=== PATIENT | female | born 1930 | race Caucasian/White ===

== ENCOUNTER 2016-04-28 13:43 | Observation (INO) | payer MEDICARE, OTHER ==
[2016-04-28] MEDS ORDERED: ASPIRIN 81 MG TABLET, CHEWABLE PO ONE (14:01)
--- NOTE | 2016-04-28 14:07 | ER Document Report ---
ED Medical Screen (RME) - General Stated Complaint: CHEST PAIN Mode of Arrival: Wheelchair Information source: Patient Notes: 86-year-old female presents to the emergency department complaining of episode of left-sided chest pain. Reports left-sided chest pain while sitting in the car after eating that lasted approximately 10 minutes and resolved after taking dose of nitroglycerin. Denies pain at this time. I have greeted and performed a rapid initial assessment of this patient. A comprehensive ED assessment and evaluation of the patient, analysis of test results and completion of the medical decision making process will be conducted by additional ED providers. - Related Data Allergies/Adverse Reactions: No Known Allergies Allergy (Unverified 04/28/16 14:04) Physical Exam - General General appearance: Appears well, Alert In distress: None - Respiratory Respiratory status: No respiratory distress - Cardiovascular Rhythm: Regular Pulses: Normal: Radial Normal capillary refill: Yes
[2016-04-28 14:32] LABS: ABSOLUTE EOSINOPHILS # (AUTO) 0.2 10^3/uL (0.0-0.6); ABSOLUTE LYMPHOCYTES (AUTO) 1.3 10^3/uL (0.5-4.7); ABSOLUTE MONOCYTES (AUTO) 0.8 10^3/uL (0.1-1.4); ABSOLUTE NEUT (AUTO) 5.5 10^3/uL (1.7-8.2); BASOPHILS % (AUTO) 0.4 % (0-2); EOSINOPHILS % (AUTO) 3.2 % (0-6); HEMATOCRIT 32.8 % (36.0-47.0); HEMOGLOBIN 10.6 g/dL (12.0-15.5); LYMPHOCYTES % (AUTO) 16.1 % (13-45); MEAN CORPUSCULAR HEMOGLOBIN 26.7 pg (27.0-33.4); MEAN CORPUSCULAR HGB CONC 32.2 g/dL (32.0-36.0); MEAN CORPUSCULAR VOLUME 83 fl (80-97); RED BLOOD COUNT 3.95 10^6/uL (3.72-5.28); RED CELL DISTRIBUTION WIDTH 15.1 % (11.5-14.0); SEGMENTED NEUTROPHILS % (AUTO) 70.3 % (42-78); WHITE BLOOD COUNT 7.8 10^3/uL (4.0-10.5)
[2016-04-28 14:47] LABS: ALANINE AMINOTRANSFERASE 15 U/L (9-52); ALBUMIN 4.3 g/dL (3.5-5.0); ALKALINE PHOSPHATASE 108 U/L (38-126); ANION GAP 11 (5-19); ASPARTATE AMINO TRANSFERASE 13 U/L (14-36); BILIRUBIN,TOTAL 0.6 mg/dL (0.2-1.3); BLOOD UREA NITROGEN 25 mg/dL (7-20); CALCIUM 9.3 mg/dL (8.4-10.2); CARBON DIOXIDE 26 mmol/L (22-30); CHLORIDE 98 mmol/L (98-107); CREATINE KINASE 41 U/L (30-135); CREATININE RESULT 0.93 mg/dL (0.52-1.25); GLUCOSE 107 mg/dL (75-110); POTASSIUM 4.6 mmol/L (3.6-5.0); SODIUM 134.5 mmol/L (137-145); TOTAL PROTEIN 7.1 g/dL (6.3-8.2)
[2016-04-28 14:59] LABS: CREATINE KINASE MB 0.91 ng/mL (<4.55)
[2016-04-28 15:08] LABS: TROPONIN I < 0.012 ng/mL
--- NOTE | 2016-04-28 15:46 | ER Document Report ---
ED Cardiac - General Chief Complaint: Chest Pain Stated Complaint: CHEST PAIN Mode of Arrival: Wheelchair Notes: The patient is an 86-year-old female, past medical history CAD s/p 1 stent, hypertension, hyperlipidemia, presents with left-sided chest pressure that started at rest earlier today. She took 3 nitroglycerin and the pain resolved. She felt slightly lightheaded after the nitroglycerin and this is now resolved. In addition, she is also feeling nauseous. Denies shortness of breath, vomiting, fevers, leg swelling, cough, rash, headache, numbness or tingling. TRAVEL OUTSIDE OF THE [place] IN LAST 30 DAYS: No - Related Data Allergies/Adverse Reactions: No Known Allergies Allergy (Unverified 04/28/16 14:04) Past Medical History - General Information source: Patient - Social History Smoking Status: Current Every Day Smoker Chew tobacco use (# tins/day): No Frequency of alcohol use: Heavy Drug Abuse: None Family History: Reviewed & Not Pertinent Patient has suicidal ideation: No Patient has homicidal ideation: No Renal/ Medical History: Denies: Hx Peritoneal Dialysis Review of Systems - Review of Systems Notes: REVIEW OF SYSTEMS: CONSTITUTIONAL: -fevers, -chills EENT: -eye pain, -difficulty swallowing, -nasal congestion CARDIOVASCULAR: +chest pain, -syncope. RESPIRATORY: -cough, -SOB GASTROINTESTINAL: -abdominal pain, +nausea, -vomiting, -diarrhea GENITOURINARY: -dysuria, -hematuria MUSCULOSKELETAL: -back pain, -neck pain SKIN: -rash or skin lesions. HEMATOLOGIC: -easy bruising or bleeding. LYMPHATIC: -swollen, enlarged glands. NEUROLOGICAL: -altered mental status or loss of consciousness, -headache, - neurologic symptoms PSYCHIATRIC: -anxiety, -depression. ALL OTHER SYSTEMS REVIEWED AND NEGATIVE. Physical Exam - Vital signs Vitals: Pulse Resp BP Pulse Ox 57 L 16 177/80 H 98 04/28/16 14:01 04/28/16 14:01 04/28/16 14:01 04/28/16 14:01 - Notes Notes: PHYSICAL EXAMINATION: GENERAL: Well-appearing, well-nourished and in no acute distress. HEAD: Atraumatic, normocephalic. EYES: Pupils equal round and reactive to light, extraocular movements intact, sclera anicteric, conjunctiva are normal. ENT: nares patent, oropharynx clear without exudates. Moist mucous membranes. NECK: Normal range of motion, supple without lymphadenopathy LUNGS: Breath sounds clear to auscultation bilaterally and equal. No wheezes rales or rhonchi. HEART: Bradycardic (57) and regular rhythm without murmurs ABDOMEN: Soft, nontender, normoactive bowel sounds. No guarding, no rebound. No masses appreciated. EXTREMITIES: Normal range of motion, no pitting or edema. No cyanosis. NEUROLOGICAL: Cranial nerves grossly intact. Normal speech, normal gait. Normal sensory, motor, and reflex exams. PSYCH: Normal mood, normal affect. SKIN: Warm, Dry, normal turgor, no rashes or lesions noted. Course - Re-evaluation Re-evalutation: Patient chest pain-free. HEART score 7. Patient's symptoms atypical for aortic dissection or PE at this time. Patient will require admission for further evaluation and treatment. Patient and daughter are in agreement with plan. Spoke to Jennifer Geller and she has accepted patient at 15:50. - Vital Signs Vital signs: Temp Pulse Resp BP Pulse Ox 57 L 16 177/80 H 98 04/28/16 14:01 04/28/16 14:01 04/28/16 14:01 04/28/16 14:01 - Laboratory Result Diagrams: 04/28/16 14:19 04/28/16 14:19 Laboratory results interpreted by me: 04/28/16 04/28/16 14:19 14:19 Hgb 10.6 L Hct 32.8 L MCH 26.7 L RDW 15.1 H Sodium 134.5 L BUN 25 H Est GFR (Non-Af Amer) 57 L AST 13 L - Diagnostic Test Radiology reviewed: Image reviewed, Reports reviewed Radiology results interpreted by me: CXR: NAD - EKG Interpretation by Nh EKG shows normal: Sinus rhythm, [place], Intervals, QRS Complexes, ST-T Waves Rate: Bradycardia Discharge - Discharge Clinical Impression: Chest pain Qualifiers: Chest pain type: unspecified Qualified Code(s): R07.9 - Chest pain, unspecified Condition: Stable Disposition: ADMITTED OBSERVATION Admitting Provider: Hospitalist - Jennifer Geller Unit Admitted: Telemetry
[2016-04-28] MEDS ORDERED: NITROGLYCERIN 0.4 MG/TAB 25 TAB/BOTTLE SL PRN (16:33)
[2016-04-28] MEDS ORDERED: ONDANSETRON HCL INJ/PF 4 MG/2 ML SDV IV PRN (16:33)
[2016-04-28] MEDS ORDERED: MAG HYDROX/AL HYDROX/SIMETH SUSP 30 ML UDCUP PO PRN (16:33)
--- NOTE | 2016-04-28 16:54 | PDOC H&P ---
History of Present Illness Patient complains of: Midsternal chest pressure and nausea History of Present Illness: ARIC GUZMAN is a 86 year old female with past medical history of coronary artery disease, status post stent, paroxysmal atrial fibrillation, hypertension , hyperlipidemia and hiatal hernia. Presents to [facility] emergency room this afternoon after experiencing midsternal chest discomfort with associated nausea. Patient states pain was not like her typical anginal pain she's had in the past. She denies any shortness of breath, palpitations, or diaphoresis. She states the pain occurred while she was at rest riding in the car after having some lunch with her daughter. She denied any vomiting. She denies any chest pain at the present time or nausea. Patient states she underwent surgery in February after her stomach became twisted and incarcerated in her hiatal hernia. Patient recently relocated to [place] end of February live with her daughter. She has not established a primary care provider here yet. She's had no other further pain since her arrival in the emergency room. Her initial troponin and EKG are unremarkable for any ischemia. Past Medical History Cardiac Medical History: Reports: Atrial Fibrillation, Coronary Artery Disease, Hypertension Pulmonary Medical History: Reports: None EENT Medical History: Reports: Cataracts Neurological Medical History: Reports: None Endocrine Medical History: Reports: None Renal/ Medical History: Reports: None Malignancy Medical History: Reports: None GI Medical History: Reports: Gastroesophageal Reflux Disease, Hiatal Hernia Musculoskeltal Medical History: Reports: Arthritis Skin Medical History: Reports: None Psychiatric Medical History: Reports: None Traumatic Medical History: Reports: None Hematology: Reports: None Infectious Medical History: Reports: None Past Surgical History Past Surgical History: Reports: Coronary Stent, Herniorrhaphy, Other Social History Information Source: Patient Lives with: Family Smoking Status: Never Smoker Frequency of Alcohol Use: None Hx Recreational Drug Use: No - Advance Directive Resuscitation Status: Full Code Surrogate healthcare decision maker:: daughter is her MPOA Family History Family History: Reviewed & Not Pertinent Parental Family History Reviewed: Yes Children Family History Reviewed: Yes Sibling(s) Family History Reviewed.: Yes Medication/Allergy Allergies/Adverse Reactions: No Known Allergies Allergy (Unverified 04/28/16 14:04) Review of Systems Constitutional: ABSENT: chills, fever(s), headache(s), weight gain, weight loss Eyes: ABSENT: visual disturbances Ears: ABSENT: hearing changes Cardiovascular: PRESENT: chest pain. ABSENT: dyspnea on exertion, edema, orthropnea, palpitations Respiratory: ABSENT: cough, hemoptysis Gastrointestinal: PRESENT: constipation, heartburn, nausea Genitourinary: ABSENT: dysuria, hematuria Musculoskeletal: ABSENT: joint swelling Integumentary: ABSENT: rash, wounds Neurological: ABSENT: abnormal gait, abnormal speech, confusion, dizziness, focal weakness, syncope Psychiatric: ABSENT: anxiety, depression, homidical ideation, suicidal ideation Endocrine: ABSENT: cold intolerance, heat intolerance, polydipsia, polyuria Hematologic/Lymphatic: ABSENT: easy bleeding, easy bruising Physical Exam Vital Signs: Temp Pulse Resp BP Pulse Ox 57 L 16 177/80 H 100 04/28/16 14:01 04/28/16 14:01 04/28/16 14:01 04/28/16 14:01 Intake & Output 04/27/16 04/28/16 04/29/16 06:59 06:59 06:59 Weight 69.7 kg General appearance: PRESENT: no acute distress, well-developed, well-nourished Head exam: PRESENT: atraumatic, normocephalic Eye exam: PRESENT: conjunctiva pink, EOMI, PERRLA. ABSENT: scleral icterus Ear exam: PRESENT: normal external ear exam Mouth exam: PRESENT: moist, tongue midline Neck exam: ABSENT: carotid bruit, JVD, lymphadenopathy, thyromegaly Respiratory exam: PRESENT: clear to auscultation kimani. ABSENT: rales, rhonchi, wheezes Cardiovascular exam: PRESENT: RRR. ABSENT: diastolic murmur, rubs, systolic murmur Pulses: PRESENT: normal dorsalis pedis pul Vascular exam: PRESENT: normal capillary refill GI/Abdominal exam: PRESENT: normal bowel sounds, soft. ABSENT: distended, guarding, mass, organolmegaly, rebound, tenderness Rectal exam: PRESENT: deferred Extremities exam: PRESENT: full ROM. ABSENT: calf tenderness, clubbing, pedal edema Musculoskeletal exam: PRESENT: ambulatory Neurological exam: PRESENT: alert, awake, oriented to person, oriented to place , oriented to time, oriented to situation, CN II-XII grossly intact. ABSENT: motor sensory deficit Psychiatric exam: PRESENT: appropriate affect, normal mood. ABSENT: homicidal ideation, suicidal ideation Skin exam: PRESENT: dry, intact, warm. ABSENT: cyanosis, rash Results Laboratory Results: 04/28/16 14:19 04/28/16 14:19 04/28/16 04/28/16 14:19 14:19 WBC 7.8 RBC 3.95 Hgb 10.6 L Hct 32.8 L MCV 83 MCH 26.7 L MCHC 32.2 RDW 15.1 H Plt Count 286 Seg Neutrophils % 70.3 Lymphocytes % 16.1 Monocytes % 10.0 Eosinophils % 3.2 Basophils % 0.4 Absolute Neutrophils 5.5 Absolute Lymphocytes 1.3 Absolute Monocytes 0.8 Absolute Eosinophils 0.2 Absolute Basophils 0.0 Sodium 134.5 L Potassium 4.6 Chloride 98 Carbon Dioxide 26 Anion Gap 11 BUN 25 H Creatinine 0.93 Est GFR ( Amer) > 60 Est GFR (Non-Af Amer) 57 L Glucose 107 Calcium 9.3 Total Bilirubin 0.6 AST 13 L ALT 15 Alkaline Phosphatase 108 Total Protein 7.1 Albumin 4.3 04/28/16 04/28/16 14:19 14:19 Creatine Kinase 41 CK-MB (CK-2) 0.91 Troponin I < 0.012 Impressions: Chest X-Ray 04/28/16 14:02 IMPRESSION: NO SIGNIFICANT RADIOGRAPHIC FINDING IN THE CHEST. Assessment & Plan - Diagnosis (1) Chest pain Qualifiers: Chest pain type: unspecified Qualified Code(s): R07.9 - Chest pain, unspecified Is this a current diagnosis for this admission?: YesPlan: We'll admit to telemetry and follow serial troponins every 6 hours (2) Atrial fibrillation Qualifiers: Atrial fibrillation type: paroxysmal Qualified Code(s): I48.0 - Paroxysmal atrial fibrillation Is this a current diagnosis for this admission?: YesPlan: Patient on present medications in normal sinus rhythm continue to monitor. (3) Hypertension Qualifiers: Hypertension type: essential hypertension Qualified Code(s): I10 - Essential (primary) hypertension Is this a current diagnosis for this admission?: YesPlan: Normotensive on current medications (4) Hyperlipidemia Qualifiers: Hyperlipidemia type: unspecified Qualified Code(s): E78.5 - Hyperlipidemia, unspecified Is this a current diagnosis for this admission?: YesPlan: Continue statin (5) Hiatal hernia Is this a current diagnosis for this admission?: YesPlan: PPI therapy - Time Time Spent: 50 to 70 Minutes Critical Time spent with patient: 25-34 minutes Medications reviewed and adjusted accordingly: Yes Anticipated discharge: Home
--- NOTE | 2016-04-28 18:00 | EKG REPORT ---
SEVERITY:- ABNORMAL ECG - SINUS BRADYCARDIA FIRST DEGREE AV BLOCK NONSPECIFIC IVCD WITH LAD PROBABLE INFERIOR INFARCT, OLD : Confirmed by: Nitish Holt 28-Apr-2016 17:59:55
[2016-04-28] MEDS: FAMOTIDINE 20 MG TABLET PO SCH (21:49)
[2016-04-28] MEDS ORDERED: FAMOTIDINE 20 MG TABLET PO SCH (22:00)
[2016-04-29] MEDS: FAMOTIDINE 20 MG TABLET PO SCH (09:37)
[2016-04-29] MEDS ORDERED: ASPIRIN 81 MG TABLET, CHEWABLE PO SCH (10:00)
[2016-04-29 10:52] VITALS: BP 152/69
--- NOTE | 2016-04-29 11:52 | PDOC DISCHARGE SUMMARY ---
General - Admit/Disc Date/PCP Admission Date/Primary Care Provider: 04/28/16 16:33 Discharge Date: 04/29/16 - Discharge Diagnosis (1) Chest pain Is this a current diagnosis for this admission?: YesSummary: Pain is resolved. Ruled out for acute coronary syndrome. Mostly likely GI origin. She will restart her omeprazole (2) Atrial fibrillation Is this a current diagnosis for this admission?: YesSummary: Now sinus rhythm (3) Hypertension Is this a current diagnosis for this admission?: YesSummary: Patient is normotensive (4) Hyperlipidemia Is this a current diagnosis for this admission?: YesSummary: Continue statin (5) Hiatal hernia Is this a current diagnosis for this admission?: YesSummary: Continue omeprazole. Avoid eating 2 hrs prior to bed - Additional Information Resuscitation Status: Full Code Discharge Diet: Cardiac Discharge Activity: Activity As Tolerated, Balance Activity w/Rest Home Medications: Aspirin [Aspirin 81 mg Chewable Tablet] 81 mg PO DAILY 04/28/16 Nitroglycerin [Nitrostat 0.4 mg (1/150 Gr) Tabs 25/Bottle] 25 tab SL Q5MP PRN Omeprazole 20 mg PO BID 04/28/16 Oxybutynin Chloride [Ditropan 5 mg Tablet] 5 mg PO DAILY 04/28/16 Aspirin [Aspirin 81 mg Chewable Tablet] 81 mg PO DAILY tab.chew 04/29/16 Famotidine [Pepcid 20 mg Tablet] 10 mg PO Q12 tablet 04/29/16 Losartan/Hydrochlorothiazide [Hyzaar 100-12.5 Tablet] 1 each PO DAILY #30 tablet 04/29/16 Metoprolol Tartrate [Lopressor 25 mg Tablet] 25 mg PO DAILY #1 tablet 04/29/16 Nitroglycerin [Nitrostat 0.4 mg (1/150 Gr) Tabs 25/Bottle] 1 tab SL Q5MP PRN bottle 04/29/16 History of Present Illness History of Present Illness: ARIC GUZMAN is a 86 year old female with past medical history of coronary artery disease, status post stent, paroxysmal atrial fibrillation, hypertension , hyperlipidemia and hiatal hernia. Presents to [facility]'s emergency room this afternoon after experiencing midsternal chest discomfort with associated nausea. Patient states pain was not like her typical anginal pain she's had in the past. She denies any shortness of breath, palpitations, or diaphoresis. She states the pain occurred while she was at rest riding in the car after having some lunch with her daughter. She denied any vomiting. She denies any chest pain at the present time or nausea. Patient states she underwent surgery in February after her stomach became twisted and incarcerated in her hiatal hernia. Patient recently relocated to [place] end of February live with her daughter. She has not established a primary care provider here yet. She's had no other further pain since her arrival in the emergency room. Her initial troponin and EKG are unremarkable for any ischemia. Hospital Course Hospital Course: The patient was admitted to the telemetry unit and monitored overnight. She had no arrythmias. She had further episodes of pain. Serial troponins were done every 6 hrs x 3, all remained negative. She has had no further nausea. She will be discharged home with daughter. She will follow up with a local physician in the next 2 weeks. She states she is eventually planning on going back to [place]. Physical Exam Vital Signs: Temp Pulse Resp BP Pulse Ox 98.3 F 60 15 152/69 H 98 04/29/16 10:50 04/29/16 10:50 04/29/16 10:50 04/29/16 10:50 04/29/16 10:50 Intake & Output 04/28/16 04/29/16 04/30/16 06:59 06:59 06:59 Weight 69.7 kg General appearance: PRESENT: no acute distress, well-developed, well-nourished Head exam: PRESENT: atraumatic, normocephalic Eye exam: PRESENT: conjunctiva pink, EOMI, PERRLA. ABSENT: scleral icterus Ear exam: PRESENT: normal external ear exam Mouth exam: PRESENT: moist, tongue midline Neck exam: ABSENT: carotid bruit, JVD, lymphadenopathy, thyromegaly Respiratory exam: PRESENT: clear to auscultation kimani. ABSENT: rales, rhonchi, wheezes Cardiovascular exam: PRESENT: RRR. ABSENT: diastolic murmur, rubs, systolic murmur Pulses: PRESENT: normal dorsalis pedis pul Vascular exam: PRESENT: normal capillary refill GI/Abdominal exam: PRESENT: normal bowel sounds, soft. ABSENT: distended, guarding, mass, organolmegaly, rebound, tenderness Rectal exam: PRESENT: deferred Extremities exam: PRESENT: full ROM. ABSENT: calf tenderness, clubbing, pedal edema Neurological exam: PRESENT: alert, awake, oriented to person, oriented to place , oriented to time, oriented to situation, CN II-XII grossly intact. ABSENT: motor sensory deficit Psychiatric exam: PRESENT: appropriate affect, normal mood. ABSENT: homicidal ideation, suicidal ideation Skin exam: PRESENT: dry, intact, warm. ABSENT: cyanosis, rash Results Laboratory Results: 04/28/16 04/29/16 04/29/16 19:20 01:27 07:31 Troponin I < 0.012 < 0.012 < 0.012 Impressions: Chest X-Ray 04/28/16 14:02 IMPRESSION: NO SIGNIFICANT RADIOGRAPHIC FINDING IN THE CHEST. Qualifiers PATEINT BEING DISCHARGED WITH ANY OF THE FOLLOWING DIAGNOSIS?: No Plan Discharge Plan: Home with daughter. Follow up with primary provider in 2 weeks Time Spent: Less than 30 Minutes
[2016-04-29] MEDS ORDERED: LANSOPRAZOLE 15 MG TAB.RAP.DR PO SCH (16:00)
[2016-04-30] MEDS ORDERED: OXYBUTYNIN CHLORIDE 5 MG TABLET PO SCH (10:00)
[2016-04-30] MEDS ORDERED: ASPIRIN 81 MG TABLET, CHEWABLE PO SCH (10:00)
== END 2016-04-29 11:13 | disposition home or self-care (01) ==
LOC: ER 13:43 → EH 16:33 → 5 19:39
PROVIDERS: ADMIT Emergency Medicine; ATTEND Emergency Medicine
DX: R07.9 Chest pain, unspecified (principal); I48.0 Paroxysmal atrial fibrillation; I10 Essential (primary) hypertension; E78.5 Hyperlipidemia, unspecified; K44.9 Diaphragmatic hernia without obstruction or gangrene; F17.200 Nicotine dependence, unspecified, uncomplicated
CPT/HCPCS: 93005; 99285; 36415; 82553; 82550; 85025; 80053; 84484 ×2; 71020; 93010; G0378 ×3; A9270 ×3; J3490

== ENCOUNTER 2016-06-10 12:11 | Emergency (ER) | payer MEDICARE, OTHER ==
--- NOTE | 2016-06-10 12:48 | ER Document Report ---
ED GI/ - General Mode of Arrival: Medic Information source: Patient, Relative TRAVEL OUTSIDE OF THE U.S. IN LAST 30 DAYS: No - HPI Patient complains to provider of: Abdominal pain. No: Vomiting Onset: This morning Timing/Duration: Gone Quality of pain: Sharp Severity at maximum: Severe Pain Level: Denies Location: Epigastric Associated symptoms: denies: Chest pain, Dysuria, Fever, Loss of appetite, Nausea, Urinary hesitancy, Urinary frequency, Urinary retention, Urinary urgency , Vaginal discharge, Vomiting Exacerbated by: Denies Relieved by: Denies Similar symptoms previously: Yes Recently seen / treated by doctor: No <MAUDE BOOGIE - Last Filed: 06/10/16 20:10> <CORRY BERMUDEZ - Last Filed: 06/11/16 08:06> - General Stated Complaint: ABDOMINAL PAIN Notes: Patient states that she had a procedure for a twisted hiatal hernia performed in February of last year out of state in [place]. Patient states since then daily off-and-on she will have mild epigastric pain. Patient states that she had very sharp epigastric pain this morning that lasted about 10 minutes and then resolved. Patient currently denies any pain at this time. Patient states that when she had pain like this previously it was due to her stomach twisting on itself. Patient denies any cough, chest pain, nausea, vomiting, or urinary symptoms. Patient is scheduled for a upper GI with small bowel follow-through on Sunday ordered by her regional telecommunications specialist. (MAUDE BOOGIE) - Related Data Allergies/Adverse Reactions: No Known Allergies Allergy (Unverified 04/28/16 14:04) Past Medical History - General Information source: Patient - Social History Smoking Status: Never Smoker Frequency of alcohol use: Occasional Drug Abuse: None Occupation: none Lives with: Family Family History: Reviewed & Not Pertinent - Past Medical History Cardiac Medical History: Reports: Hx Atrial Fibrillation, Hx Coronary Artery Disease, Hx Hypercholesterolemia, Hx Hypertension Renal/ Medical History: Denies: Hx Peritoneal Dialysis GI Medical History: Reports: Hx Gastroesophageal Reflux Disease, Hx Hiatal Hernia Musculoskeltal Medical History: Reports Hx Arthritis Past Surgical History: Reports: Hx Bowel Surgery - Gastropexy for hiatal hernia , Hx Cardiac Surgery, Hx Cholecystectomy, Hx Coronary Stent, Hx Herniorrhaphy, Hx Orthopedic Surgery - spinal fusion, R ankle, R wrist, Hx Vascular Surgery - stent (PE), Other <MAUDE BOOGIE - Last Filed: 06/10/16 20:10> Review of Systems - Review of Systems Constitutional: No symptoms reported. denies: Fever, Recent illness EENT: No symptoms reported Cardiovascular: No symptoms reported. denies: Chest pain Respiratory: denies: Cough, Short of breath Gastrointestinal: Abdominal pain. denies: Diarrhea, Nausea, Vomiting Genitourinary: No symptoms reported Female Genitourinary: No symptoms reported Musculoskeletal: No symptoms reported. denies: Back pain Skin: No symptoms reported Hematologic/Lymphatic: No symptoms reported Neurological/Psychological: No symptoms reported <MAUDE BOOGIE - Last Filed: 06/10/16 20:10> Physical Exam - General General appearance: Appears well, Alert In distress: None - HEENT Head: Normocephalic, Atraumatic Eyes: Normal Nasal: Normal Mouth/Lips: Normal Mucous membranes: Normal Pharynx: Normal Neck: Normal, Supple. No: Lymphadenopathy - Respiratory Respiratory status: No respiratory distress Chest status: Nontender Breath sounds: Normal. No: Rales, Rhonchi, Stridor, Wheezing Chest palpation: Normal - Cardiovascular Rhythm: Regular Heart sounds: S1 appreciated, S2 appreciated Murmur: No - Abdominal Inspection: Normal Distension: No distension Bowel sounds: Normal Tenderness: Tender - Left upper quadrant Organomegaly: No organomegaly - Back Back: Normal, Nontender. No: CVA tenderness - Extremities General upper extremity: Normal inspection, Normal strength General lower extremity: Normal inspection, Normal strength - Neurological Neuro grossly intact: Yes Cognition: Normal Ilsa Coma Scale Eye Opening: Spontaneous [place]lsa Coma Scale Verbal: Oriented [place] Coma Scale Motor: Obeys Commands [place] Coma Scale Total: 15 - Psychological Associated symptoms: Normal affect, Normal mood - Skin Skin Temperature: Warm Skin Moisture: Dry Skin Color: Normal <CHUYITAMAUDE Pappas - Last Filed: 06/10/16 20:10> Course - Laboratory Result Diagrams: 06/10/16 13:00 06/10/16 13:00 <CHUYITASUSANLEVAR - Last Filed: 06/10/16 20:10> - Laboratory Result Diagrams: 06/10/16 13:00 06/10/16 13:00 <CORRY BERMUDEZ - Last Filed: 06/11/16 08:06> - Re-evaluation Re-evalutation: 06/10/16 12:[address] Rodriguez regarding patient presentation, recommends CT imaging of abdomen with IV contrast. 06/10/16 18:29 Patient's abdomen continues soft, nontender. Dr. Dorantes recommends consulting with patient's primary doctor regarding refill for her flecainide as she has been off the medication for at least 4 days. 06/10/16 18:55 [facility], there is no physician that currently takes call for Dr. Perez practice. [facility] states that there is a office number has a nurse line that can forward calls potentially. Spoke with nurse line for [facility] internal medicine and states that she will put a page through for patients doctor, although states that her doctor is not career and technology education teacher and may not return the call. 06/10/16 19:[address] Mendiola who is on-call for Dr. Harding (pt's emergency medcl emt from [place] ) and discussed patient presentation. Dr. Mendiola is not familiar with patient, but will check records and give a call back 06/10/16 20:10 Bedside report and handoff given to Corry Bermudez BOILER CLEANER (MAUDE BOOGIE) 06/10/16 21:15 No call back received from Dr. Mendiola yet. [facility] emergency medcl emt career and technology education teacher Dr. Smalls was consulted who recommends decreasing metoprolol to 25 mg and not restarting flecainide at this time. Recommends patient call him tomorrow for follow-up appointment on Sunday. Also received callback from patient's PCP Dr. Perez who agrees with plan and will follow-up with patient on Sunday. This was discussed with patient who verbalized understanding and agrees with plan. Patient remains hemodynamically stable and in no distress. 06/10/16 22:[address] received from Dr. Mendiola. Discussed with Dr. Mendiola the consultation that was had with local emergency medcl emt Dr. Smalls and Dr. Mendiola concurs with treatment and plan. (CORRY BERMUDEZ) - Vital Signs Vital signs: Temp Pulse Resp BP Pulse Ox 15 166/67 H 100 06/10/16 21:01 06/10/16 21:01 06/10/16 21:01 - Laboratory Laboratory results interpreted by me: 06/10/16 06/10/16 06/10/16 13:00 13:00 14:43 RBC 3.70 L Hgb 10.0 L Hct 30.4 L RDW 15.0 H Lymphocytes % 12.6 L Sodium 133.5 L Chloride 96 L BUN 23 H Lactic Acid 0.6 L Ur Leukocyte Esterase 06/10/16 15:45 RBC Hgb Hct RDW Lymphocytes % Sodium Chloride BUN Lactic Acid Ur Leukocyte Esterase SMALL H Discharge <MAUDE BOOGIE - Last Filed: 06/10/16 20:10> <CORRY BERMUDEZ - Last Filed: 06/11/16 08:06> - Discharge Clinical Impression: Epigastric abdominal pain Condition: Stable Disposition: HOME, SELF-CARE Instructions: Abdominal Pain ([facility]), Evaluation of Upper Abdominal Pain ([facility]) Additional Instructions: Decrease the dose of your Metoprolol to 25mg Keep your appointment with Gastroenterology Dr. Hughes on Sunday. Call Nail Machine Operator Dr. Burr tomorrow at [phone] to establish care and follow -up appointment this week. Return immediately to the Emergency Department for any new or worsening symptoms. Follow-up with your primary care provider Dr. Perez, call Sunday to make a followup appointment. Referrals: FEDERICA HUGHES MD [Primary Care Provider] - 06/12/16 SHAYE SMALLS MD [ACTIVE STAFF] - Follow up tomorrow SARAH PEREZ MD [NO LOCAL MD] - Follow up in 3-5 days
[2016-06-10 13:22] LABS: ABSOLUTE EOSINOPHILS # (AUTO) 0.2 10^3/uL (0.0-0.6); ABSOLUTE MONOCYTES (AUTO) 0.6 10^3/uL (0.1-1.4); ABSOLUTE NEUT (AUTO) 6.2 10^3/uL (1.7-8.2); BASOPHILS % (AUTO) 0.6 % (0-2); EOSINOPHILS % (AUTO) 2.9 % (0-6); HEMATOCRIT 30.4 % (36.0-47.0); HGB HCT DIFFERENCE -0.4; LYMPHOCYTES % (AUTO) 12.6 % (13-45); MEAN CORPUSCULAR HEMOGLOBIN 27.1 pg (27.0-33.4); MEAN CORPUSCULAR VOLUME 82 fl (80-97); MONOCYTES % (AUTO) 6.9 % (3-13); WHITE BLOOD COUNT 8.1 10^3/uL (4.0-10.5)
[2016-06-10 13:40] LABS: ALANINE AMINOTRANSFERASE 18 U/L (9-52); ALBUMIN 4.1 g/dL (3.5-5.0); ALKALINE PHOSPHATASE 98 U/L (38-126); ANION GAP 11 (5-19); ASPARTATE AMINO TRANSFERASE 16 U/L (14-36); BILIRUBIN,DIRECT 0.1 mg/dL (0.0-0.4); BILIRUBIN,TOTAL 0.6 mg/dL (0.2-1.3); BLOOD UREA NITROGEN 23 mg/dL (7-20); CALCIUM 9.3 mg/dL (8.4-10.2); CARBON DIOXIDE 27 mmol/L (22-30); CHLORIDE 96 mmol/L (98-107); CREATINE KINASE 45 U/L (30-135); CREATININE RESULT 0.85 mg/dL (0.52-1.25); GLUCOSE 110 mg/dL (75-110); MAGNESIUM 2.2 mg/dL (1.6-2.3); POTASSIUM 4.4 mmol/L (3.6-5.0); SODIUM 133.5 mmol/L (137-145)
[2016-06-10 13:52] LABS: CREATINE KINASE MB 1.29 ng/mL (<4.55); TROPONIN I < 0.012 ng/mL
[2016-06-10] MEDS ORDERED: NORMAL SALINE 1000 ML 500 ML IV ONE (15:06)
[2016-06-10 16:04] LABS: APPEARANCE,URINE CLEAR; BILIRUBIN,URINE NEGATIVE (NEGATIVE); GLUCOSE, URINE NEGATIVE (NEGATIVE); KETONES,URINE NEGATIVE (NEGATIVE); LEUKOCYTE ESTERASE,URINE SMALL (NEGATIVE); NITRITE,URINE NEGATIVE (NEGATIVE); PROTEIN,URINE NEGATIVE (NEGATIVE); URINE SPECIFIC GRAVITY 1.005; UROBILINOGEN,URINE NEGATIVE mg/dL (<2.0)
[2016-06-10 21:24] VITALS: BP 166/67
--- NOTE | 2016-06-11 00:06 | EKG REPORT ---
SEVERITY:- ABNORMAL ECG - SINUS BRADYCARDIA LAD, CONSIDER LEFT ANTERIOR FASCICULAR BLOCK : Confirmed by: Nitish Holt 11-Jun-2016 00:06:20
== END 2016-06-10 21:24 | disposition home or self-care (01) ==
LOC: ER 12:11
DX: R10.13 Epigastric pain (principal); R10.812 Left upper quadrant abdominal tenderness; Z98.890 Other specified postprocedural states; I25.10 Atherosclerotic heart disease of native coronary artery without angina pectoris; I10 Essential (primary) hypertension; Z98.61 Coronary angioplasty status
CPT/HCPCS: 36415; 74022; 74177; 80053; 81001; 82550; 82553; 83605; 83735; 84484; 85025; 93005; 93010; 99284

== ENCOUNTER → 2016-06-12 | Outpatient (CLI) | payer MEDICARE, OTHER | LOC: RAD 08:48 | PROVIDERS: ATTEND Physician Assistant | DX: R10.13 Epigastric pain (principal); K22.4 Dyskinesia of esophagus; K44.9 Diaphragmatic hernia without obstruction or gangrene | CPT/HCPCS: 74249 ==

== ENCOUNTER 2016-06-17 17:29 | Emergency (ER) | payer MEDICARE, OTHER ==
[2016-06-17 17:39] VITALS: BP 190/72
--- NOTE | 2016-06-17 17:56 | ER Document Report ---
ED Medical Screen (RME) - General Chief Complaint: Constipation Stated Complaint: ABDOMINAL PAIN TRAVEL OUTSIDE OF THE U.S. IN LAST 30 DAYS: No - HPI Notes: 06/17/16 17:56 No bowel movement after barium swallow - Related Data Allergies/Adverse Reactions: No Known Allergies Allergy (Verified 06/17/16 17:37) Past Medical History - Past Medical History Cardiac Medical History: Reports: Hx Atrial Fibrillation, Hx Coronary Artery Disease, Hx Hypercholesterolemia, Hx Hypertension Renal/ Medical History: Denies: Hx Peritoneal Dialysis GI Medical History: Reports: Hx Gastroesophageal Reflux Disease, Hx Hiatal Hernia Musculoskeltal Medical History: Reports Hx Arthritis Past Surgical History: Reports: Hx Bowel Surgery - Gastropexy for hiatal hernia , Hx Cardiac Surgery, Hx Cholecystectomy, Hx Coronary Stent, Hx Herniorrhaphy, Hx Orthopedic Surgery - spinal fusion, R ankle, R wrist, Hx Vascular Surgery - stent (PE), Other Review of Systems - Review of Systems Gastrointestinal: Constipation Physical Exam - Vital signs Vitals: Temp Pulse Resp BP Pulse Ox 97.8 F 65 20 190/72 H 100 06/17/16 17:38 06/17/16 17:38 06/17/16 17:38 06/17/16 17:38 06/17/16 17:38 - General General appearance: Appears well In distress: None Course - Vital Signs Vital signs: Temp Pulse Resp BP Pulse Ox 97.8 F 65 20 190/72 H 100 06/17/16 17:38 06/17/16 17:38 06/17/16 17:38 06/17/16 17:38 06/17/16 17:38
[2016-06-17] MEDS ORDERED: LACTULOSE SYRUP 20 GM/30 ML UDCUP PO ONE (18:11)
--- NOTE | 2016-06-17 20:08 | ER Document Report ---
ED General - General Chief Complaint: Constipation Stated Complaint: ABDOMINAL PAIN Notes: Patient is an 86-year-old female with a past medical history of chronic constipation, hypertension and hyperlipidemia who presents with not having a bowel movement for the past 6 days. States that she had a barium swallow study done on Sunday and has not had a bowel movement since that time. She's been taking MiraLAX at home without resolution of her constipation. She denies any abdominal pain, vomiting, and states she's continued to pass gas. She has a history of similar symptoms in the past but usually resolves of MiraLAX. As to my assessment, patient states that she is actually gone to bathroom 3 times since being here in the emergency department and no longer feels constipated. She did take make citrate today and believes that is what has triggered her having bowel movements. She is requesting to go home at this time. TRAVEL OUTSIDE OF THE [place] IN LAST 30 DAYS: No - Related Data Allergies/Adverse Reactions: No Known Allergies Allergy (Verified 06/17/16 17:37) Past Medical History - General Information source: Patient - Social History Smoking Status: Never Smoker Frequency of alcohol use: None Drug Abuse: None Lives with: Family Family History: Reviewed & Not Pertinent Patient has suicidal ideation: No Patient has homicidal ideation: No - Past Medical History Cardiac Medical History: Reports: Hx Atrial Fibrillation, Hx Coronary Artery Disease, Hx Hypercholesterolemia, Hx Hypertension Renal/ Medical History: Denies: Hx Peritoneal Dialysis GI Medical History: Reports: Hx Gastroesophageal Reflux Disease, Hx Hiatal Hernia Musculoskeltal Medical History: Reports Hx Arthritis Past Surgical History: Reports: Hx Bowel Surgery - Gastropexy for hiatal hernia , Hx Cardiac Surgery, Hx Cholecystectomy, Hx Coronary Stent, Hx Herniorrhaphy, Hx Orthopedic Surgery - spinal fusion, R ankle, R wrist, Hx Vascular Surgery - stent (PE), Other Review of Systems - Review of Systems Notes: Constitutional: Negative for fever. HENT: Negative for sore throat. Eyes: Negative for visual changes. Cardiovascular: Negative for chest pain. Respiratory: Negative for shortness of breath. Gastrointestinal: Negative for abdominal pain, vomiting or diarrhea. Positive constipation Genitourinary: Negative for dysuria. Musculoskeletal: Negative for back pain. Skin: Negative for rash. Neurological: Negative for headaches, weakness or numbness. 10 point ROS negative except as marked above and in HPI. Physical Exam - Vital signs Vitals: Temp Pulse Resp BP Pulse Ox 97.8 F 65 20 190/72 H 100 06/17/16 17:38 06/17/16 17:38 06/17/16 17:38 06/17/16 17:38 06/17/16 17:38 Interpretation: Hypertensive Notes: PHYSICAL EXAMINATION: GENERAL: Well-appearing, well-nourished and in no acute distress. HEAD: Atraumatic, normocephalic. EYES: Pupils equal round and reactive to light, extraocular movements intact, sclera anicteric, conjunctiva are normal. ENT: nares patent, oropharynx clear without exudates. Moist mucous membranes. NECK: Normal range of motion, supple without lymphadenopathy LUNGS: Breath sounds clear to auscultation bilaterally and equal. No wheezes rales or rhonchi. HEART: Regular rate and rhythm without murmurs ABDOMEN: Soft, nontender, normoactive bowel sounds. No guarding, no rebound. No masses appreciated. EXTREMITIES: Normal range of motion, no pitting or edema. No cyanosis. NEUROLOGICAL: No focal neurological deficits. Moves all extremities spontaneously and on command. PSYCH: Normal mood, normal affect. SKIN: Warm, Dry, normal turgor, no rashes or lesions noted. Course - Re-evaluation Re-evalutation: 06/17/16 20:02 Patient presents with inability to have a bowel movement but the past 5 days but no abdominal pain. She has been taking mag citrate and MiraLAX at home and has had 3 bowel movements here in the emergency department without any further intervention. She states that she no longer feels constipated and would like to go home. KUB does demonstrate constipation obtained barium but her clinical history is not consistent with a small bowel obstruction or ileus. She has no focal abdominal tenderness on exam. She denies abdominal pain. I do not suspect an acute mesenteric perforation, bowel obstruction or ileus.At this time will discharge with return precautions and follow-up recommendations. Verbal discharge instructions given a the bedside and opportunity for questions given. Medication warnings reviewed. Patient is in agreement with this plan and has verbalized understanding of return precautions and the need for primary care follow-up in the next 24-72 hours. - Vital Signs Vital signs: Temp Pulse Resp BP Pulse Ox 97.8 F 65 20 190/72 H 100 06/17/16 17:38 06/17/16 17:38 06/17/16 17:38 06/17/16 17:38 06/17/16 17:38 Discharge - Discharge Clinical Impression: Constipation Qualifiers: Constipation type: unspecified constipation type Qualified Code(s): K59.00 - Constipation, unspecified Condition: Good Disposition: HOME, SELF-CARE Additional Instructions: Please return to the emergency room immediately if you experience any concerning symptoms including high fevers, severe headache, chest pain, difficulty breathing, abdominal pain, slurred speech, numbness or weakness in your arms or legs, or any other symptom that concerns you. Referrals: FEDERICA TRIMBLE MD [Primary Care Provider] - Follow up as needed
== END 2016-06-17 20:20 | disposition home or self-care (01) ==
LOC: ER 17:29
DX: K59.00 Constipation, unspecified (principal); R10.9 Unspecified abdominal pain; I10 Essential (primary) hypertension; E78.5 Hyperlipidemia, unspecified
CPT/HCPCS: 74000; 99284

== ENCOUNTER 2016-06-18 16:16 | Emergency (ER) | payer MEDICARE, OTHER ==
[2016-06-18 16:31] VITALS: BP 184/62
--- NOTE | 2016-06-18 16:38 | ER Document Report ---
ED Medical Screen (RME) - General Chief Complaint: Constipation Stated Complaint: BOWEL ISSUE TRAVEL OUTSIDE OF THE [place]. IN LAST 30 DAYS: No - HPI Notes: 06/18/16 16:37 Patient seen yesterday after constipation after a barium swallow study. Patient was given mag citrate states he did have a bowel movement but she is still concerned she may have a large amount retained barium. Patient is requesting x-ray. - Related Data Allergies/Adverse Reactions: No Known Allergies Allergy (Verified 06/18/16 16:28) Past Medical History - Past Medical History Cardiac Medical History: Reports: Hx Atrial Fibrillation, Hx Coronary Artery Disease, Hx Hypercholesterolemia, Hx Hypertension Renal/ Medical History: Denies: Hx Peritoneal Dialysis GI Medical History: Reports: Hx Gastroesophageal Reflux Disease, Hx Hiatal Hernia Musculoskeltal Medical History: Reports Hx Arthritis Past Surgical History: Reports: Hx Bowel Surgery - Gastropexy for hiatal hernia , Hx Cardiac Surgery, Hx Cholecystectomy, Hx Coronary Stent, Hx Herniorrhaphy, Hx Orthopedic Surgery - spinal fusion, R ankle, R wrist, Hx Vascular Surgery - stent (PE), Other - Immunizations Hx Diphtheria, Pertussis, Tetanus Vaccination: - unknown Review of Systems - Review of Systems Gastrointestinal: Constipation Physical Exam - Vital signs Vitals: Temp Pulse Resp BP Pulse Ox 97.4 F 56 L 16 184/62 H 98 06/18/16 16:27 06/18/16 16:27 06/18/16 16:27 06/18/16 16:27 06/18/16 16:27 - General General appearance: Appears well In distress: None Course - Vital Signs Vital signs: Temp Pulse Resp BP Pulse Ox 97.4 F 56 L 16 184/62 H 98 06/18/16 16:27 06/18/16 16:27 06/18/16 16:27 06/18/16 16:27 06/18/16 16:27
--- NOTE | 2016-06-18 17:30 | ER Document Report ---
ED GI/ <RED MARVIN - Last Filed: 06/18/16 17:58> - General Mode of Arrival: Ambulatory Information source: Patient TRAVEL OUTSIDE OF THE [place] IN LAST 30 DAYS: No - HPI Patient complains to provider of: Other - Constipation Onset: Last week Timing/Duration: Gradual, Persistent Associated symptoms: None <JESSICA MONTALVO - Last Filed: 06/18/16 18:21> - General Chief Complaint: Constipation Stated Complaint: BOWEL ISSUE Notes: Patient is an 86 year old female presenting to the emergency department concerned because she does not believe all the Barium from her study 06/12/2016 is leaving her system. Patient was constipated for multiple days after this study, but has now had multiple bowel movements since she has been in the ED yesterday and again today. Patient reports having a small, firm bowel movement shortly before her examination today. Patient denies any abdominal pain or other symptoms besides constipation. Patient states that she has taken MiraLAX and other laxatives by mouth, as well as 2 enemas today. When a rectal exam was suggested to rule out any blockages, patient reports having performed her own rectal exam and has no concerns for any blockages. Patient is very pleased to hear that most of the Barium has now left her system, and looks forward to being able to attend a social event tomorrow. (JESSICA MONTALVO) - Related Data Allergies/Adverse Reactions: No Known Allergies Allergy (Verified 06/18/16 16:28) Past Medical History - General Information source: Patient - Social History Smoking Status: Never Smoker Family History: Reviewed & Not Pertinent Patient has suicidal ideation: No Patient has homicidal ideation: No - Past Medical History Cardiac Medical History: Reports: Hx Atrial Fibrillation, Hx Coronary Artery Disease, Hx Hypercholesterolemia, Hx Hypertension Renal/ Medical History: Denies: Hx Peritoneal Dialysis GI Medical History: Reports: Hx Gastroesophageal Reflux Disease, Hx Hiatal Hernia Musculoskeltal Medical History: Reports Hx Arthritis Past Surgical History: Reports: Hx Bowel Surgery - Gastropexy for hiatal hernia , Hx Cardiac Surgery, Hx Cholecystectomy, Hx Coronary Stent, Hx Herniorrhaphy, Hx Orthopedic Surgery - spinal fusion, R ankle, R wrist, Hx Vascular Surgery - stent (PE), Other - Immunizations Hx Diphtheria, Pertussis, Tetanus Vaccination: - unknown <JESSICA MONTALVO - Last Filed: 06/18/16 18:21> Review of Systems - Review of Systems Constitutional: No symptoms reported EENT: No symptoms reported Cardiovascular: No symptoms reported Respiratory: No symptoms reported Gastrointestinal: See HPI, Constipation Genitourinary: No symptoms reported Female Genitourinary: No symptoms reported Musculoskeletal: No symptoms reported Skin: No symptoms reported Hematologic/Lymphatic: No symptoms reported Neurological/Psychological: No symptoms reported -: Yes All other systems reviewed and negative <JESSICA MONTALVO - Last Filed: 06/18/16 18:21> Physical Exam - Vital signs Interpretation: Hypertensive - General General appearance: Appears well, Alert In distress: None - HEENT Head: Normocephalic, Atraumatic Eyes: Normal Pupils: PERRL - Respiratory Respiratory status: No respiratory distress Chest status: Nontender Breath sounds: Normal Chest palpation: Normal - Cardiovascular Rhythm: Regular Heart sounds: Normal auscultation Murmur: No - Abdominal Inspection: Normal - Soft Distension: No distension Bowel sounds: Normal Tenderness: Nontender - Back Back: Normal, Nontender - Extremities General upper extremity: Normal inspection, Nontender General lower extremity: Normal inspection, Nontender - Neurological Neuro grossly intact: Yes Cognition: Normal Orientation: AAOx4 Ilsa Coma Scale Eye Opening: Spontaneous [place] Coma Scale Verbal: Oriented [place] Coma Scale Motor: Obeys Commands [place] Coma Scale Total: 15 Speech: Normal - Psychological Associated symptoms: Normal affect, Normal mood - Skin Skin Temperature: Warm Skin Moisture: Dry Skin Color: Normal <JESSICA MONTALVO - Last Filed: 06/18/16 18:21> - Vital signs Vitals: Temp Pulse Resp BP Pulse Ox 97.4 F 56 L 16 184/62 H 98 06/18/16 16:27 06/18/16 16:27 06/18/16 16:27 06/18/16 16:27 06/18/16 16:27 Course - Diagnostic Test Radiology reviewed: Image reviewed <RED MARVIN - Last Filed: 06/18/16 17:58> <JESSICA MONTALVO - Last Filed: 06/18/16 18:21> - Re-evaluation Re-evalutation: 06/18/16 18:02 Patient had a bowel movement here whcih she reports to be small and somewhat firm. I reviewed the x-ray findings with her that showed essentially no more barium contrast except for a minimal amount of barium present. She seemed somewhat fixated on making sure the barium was gone. She was comforted by the fact that there was only a minimal amount left. She is having bowel movements and deferred digital examination and wants to go without further treatment. Her abdomen is soft and she is having no abdominal tenderness. (RED MARVIN) - Vital Signs Vital signs: Temp Pulse Resp BP Pulse Ox 97.4 F 56 L 16 184/62 H 98 06/18/16 16:27 06/18/16 16:27 06/18/16 16:27 06/18/16 16:27 06/18/16 16:27 - Diagnostic Test Radiology results interpreted by me: 06/18/16 18:03 Minimal amount of [place] present. Air filled colon without signs of obstruction. (RED MARVIN) Discharge <RED MARVIN - Last Filed: 06/18/16 17:58> <JESSICA MONTALVO - Last Filed: 06/18/16 18:21> - Discharge Clinical Impression: Obstipation Instructions: Constipation ([facility]) Additional Instructions: Follow-up with your primary care physician this week. Continue your Miralax. Return for worsening or concern. Forms: Elevated Blood Pressure Scribe Attestation: 06/18/16 18:01 I personally performed the services described in the documentation, reviewed and edited the documentation which was dictated to the scribe in my presence, and it accurately records my words and actions. (RED MARVIN) Scribe Documentation - Scribe Written by Christina:: Jessica Montalvo 06/18/2016 1730 acting as scribe for :: Timothy <JESSICA MONTALVO - Last Filed: 06/18/16 18:21>
== END 2016-06-18 18:09 | disposition home or self-care (01) ==
LOC: ER 16:16
DX: K59.00 Constipation, unspecified (principal); Z98.890 Other specified postprocedural states; I25.10 Atherosclerotic heart disease of native coronary artery without angina pectoris; I10 Essential (primary) hypertension; Z98.61 Coronary angioplasty status
CPT/HCPCS: 74000; 99283